=== PATIENT | female | born 1995 | race Caucasian/White ===

== ENCOUNTER 2016-08-29 22:12 | Emergency (ER) | payer OTHER ==
[~2016-08-29] VITALS: Ht 154.9 cm; Wt 51.3 kg
[2016-08-29 22:17] VITALS: TEMP 37.1; Ht 154.9 cm; Wt 51.3 kg
[2016-08-29] MEDS ORDERED: SODIUM CHLORIDE 0.9% 1000ML 1,000 ML IV STA ×2 (23:01)
[2016-08-29 23:11] LABS: BASO % 0.3 %; BASO ABS # 0.03 K/uL (0-0.2); COMPLETE YES; EOS % 0.1 %; HEMATOCRIT 39.5 % (37-47); IG% 0.1 %; LYMPH % 25.4 %; LYMPH ABS # 2.34 K/uL (1.2-3.4); MEAN CELL VOLUME 91.6 fL (80-100); MEAN CORPUSCULAR HEMOGLOBIN 32.3 pg (25-34); MEAN CORPUSCULAR HGB CONC 35.2 g/dl (32-36); MEAN PLATELET VOLUME 10.5 fL (7.4-10.4); NEUT % 68.1 %; PLATELET COUNT 299 K/uL (130-400); RED BLOOD COUNT 4.31 M/uL (4.2-5.4)
[2016-08-29 23:29] LABS: BUN/CREATININE RATIO 13.3 (10-20); CALCIUM 9.3 mg/dl (8.5-10.1); CREATININE 0.88 mg/dl (0.60-1.20); POTASSIUM 3.4 mmol/L (3.5-5.1)
[2016-08-29] MEDS ORDERED: KETOROLAC TROMETHAMINE 30 MG/ML VIAL IV STA (23:38)
[2016-08-29] MEDS ORDERED: ONDANSETRON INJ 2 MG/ML 2 ML VIAL IV STA (23:38)
--- NOTE | 2016-08-29 23:39 | EMERGENCY ROOM VISIT NOTE ---
History Report prepared by Archana: Carlos Cortes Under the Supervision of: Dr. Cathi Conti D.O. First contact with patient: 22:57 Chief Complaint: DEHYDRATION Stated Complaint: HEADACHE, NAUSEA, VOMITING, DEHYDRATION Nursing Triage Summary: pt reports abdominal pain with NV since this AM unable to keep liquids or food down History of Present Illness The patient is a 21 year old female who presents to the Emergency Room with complaints of persistent vomiting since she woke up at 1000 this morning. The patient has been unable to keep food or fluids down without vomiting. The patient also complains of a headache, nausea, and subjective low grade fevers today. She denies any diarrhea. The patient admits to having 2-3 alcoholic beverages last night. She also ate Talbert's, and notes that she usually vomits after eating it. The patient denies any significant medical history other than asthma. She is a [employer] student. LNMP was one month ago. Her periods are irregular. Source of History: patient Onset: 1000 this morning Position: other (GI) Quality: other (vomiting) Timing: other (persistent) Associated Symptoms: + fevers, + headache, + nausea, No diarrhea Review of Systems See HPI for pertinent positives & negatives. A total of 10 systems reviewed and were otherwise negative. Past Medical & Surgical Medical Problems: (1) Asthma Influenza B Family History No pertinent family history Social History Smoking Status: Never Smoker Alcohol Use: occasionally Marital Status: single Housing Status: lives with roommate Occupation Status: [employer] student Current/Historical Medications No Active Prescriptions or Reported Meds Allergies Coded Allergies: POLLEN (Unverified Allergy, Intermediate, SNEEZING, RUNNY NOSE, ITCHY EYES , 08/29/16) Penicillins (Verified Allergy, Intermediate, rash, 08/29/16) Physical Exam Vital Signs Date Time Temp Pulse Resp B/P Pulse Ox O2 Delivery O2 Flow Rate FiO2 08/30/16 01:20 75 18 98/52 97 08/30/16 00:27 73 18 105/64 98 Room Air 08/29/16 22:17 37.1 86 18 135/86 100 Room Air Physical Exam HEENT: Head - normocephalic and atraumatic Pupils are equal, round, and reactive to light. Extraocular eye muscles are intact, and sclera are anicteric. Nose - moist nasal mucosa without discharge. Mouth - moist buccal mucosa. Oropharynx is nonerythematous and there is no tonsillar exudate or edema noted. Neck: Supple; no JVD, nuchal rigidity, cervical lymphadenopathy. Heart: Regular rate and rhythm. There is a normal S1 and S2 with no murmurs, clicks, or gallops appreciated. Lungs: Clear to auscultation bilaterally with no wheezes, rales, or rhonchi. Abdomen: Soft, diffuse mild tenderness with palpation of the abdomen, nondistended, with good bowel sounds. There are no palpable pulsatile masses or hepatosplenomegaly. There is no guarding, rigidity, or rebound noted. Extremities: No evidence of cyanosis, clubbing, or edema. There are easily palpable peripheral pulses. Skin: warm and dry with good turgor and no rashes. Medical Decision & Procedures Laboratory Results 08/29/16 22:57 Red Blood Count 4.31, Mean Corpuscular Volume 91.6, Mean Corpuscular Hemoglobin 32.3, Mean Corpuscular Hemoglobin Concent 35.2, Mean Platelet Volume 10.5, Neutrophils (%) (Auto) 68.1, Lymphocytes (%) (Auto) 25.4, Monocytes (%) (Auto) 6.0, Eosinophils (%) (Auto) 0.1, Basophils (%) (Auto) 0.3, Neutrophils # (Auto) 6.26, Lymphocytes # (Auto) 2.34, Monocytes # (Auto) 0.55, Eosinophils # (Auto) 0.01, Basophils # (Auto) 0.03 08/29/16 22:57 Test 08/29/16 22:57 White Blood Count 9.20 K/uL (4.8-10.8) Red Blood Count 4.31 M/uL (4.2-5.4) Hemoglobin 13.9 g/dL (12.0-16.0) Hematocrit 39.5 % (37-47) Mean Corpuscular Volume 91.6 fL (80-100) Mean Corpuscular Hemoglobin 32.3 pg (25-34) Mean Corpuscular Hemoglobin Concent 35.2 g/dl (32-36) Platelet Count 299 K/uL (130-400) Mean Platelet Volume 10.5 fL (7.4-10.4) Neutrophils (%) (Auto) 68.1 % Lymphocytes (%) (Auto) 25.4 % Monocytes (%) (Auto) 6.0 % Eosinophils (%) (Auto) 0.1 % Basophils (%) (Auto) 0.3 % Neutrophils # (Auto) 6.26 K/uL (1.4-6.5) Lymphocytes # (Auto) 2.34 K/uL (1.2-3.4) Monocytes # (Auto) 0.55 K/uL (0.11-0.59) Eosinophils # (Auto) 0.01 K/uL (0-0.5) Basophils # (Auto) 0.03 K/uL (0-0.2) RDW Standard Deviation 40.5 fL (36.4-46.3) RDW Coefficient of Variation 11.9 % (11.5-14.5) Immature Granulocyte % (Auto) 0.1 % Immature Granulocyte # (Auto) 0.01 K/uL (0.00-0.02) Anion Gap 8.0 mmol/L (3-11) Est Creatinine Clear Calc Drug Dose 75.6 ml/min Estimated GFR () 108.1 Estimated GFR (Non- 93.3 BUN/Creatinine Ratio 13.3 (10-20) Calcium Level 9.3 mg/dl (8.5-10.1) Total Bilirubin 0.7 mg/dl (0.2-1) Direct Bilirubin 0.2 mg/dl (0-0.2) Aspartate Amino Transf (AST/SGOT) 15 U/L (15-37) Alanine Aminotransferase (ALT/SGPT) 22 U/L (12-78) Alkaline Phosphatase 76 U/L (45-117) Total Protein 7.7 gm/dl (6.4-8.2) Albumin 4.4 gm/dl (3.4-5.0) Laboratory results per my review. Medications Administered Medications (Trade) Dose Ordered Sig/Cheikh Route Start Time Stop Time Status Last Admin Dose Admin Sodium Chloride (Nss 1000ml) 1,000 ml @ 999 mls/hr Q1H1M STAT IV 08/29/16 23:01 08/30/16 00:01 DC 08/29/16 23:01 999 MLS/HR Ketorolac Tromethamine (Toradol Inj) 30 mg NOW STAT IV 08/29/16 23:38 08/29/16 23:39 DC 08/29/16 23:38 30 MG Ondansetron HCl (Zofran Inj) 4 mg NOW STAT IV 08/29/16 23:38 08/29/16 23:39 DC 08/29/16 23:38 4 MG Procedure Medications administered include Toradol IV, Zofran IV, NSS IV. ED Course 2335: Past medical records reviewed. The patient was evaluated in room C7. A complete history and physical exam was performed. An IV lock was initiated and labs are drawn as above. 2301: NSS 1000 ml @ 250 mls/hr, NSS 1000 ml @ 999 mls/hr. 2338: Zofran 4 mg IV, Toradol 30 mg IV. 0035: The patient has not had anymore vomiting. She did have chicken broth [employer] and did not vomit then. She is drinking Gatorade now. 0106: The patient is drinking without any problems or new vomiting. I discussed the treatment plan with her. She verbalized understanding and agreement of the treatment plan. The patient is ready for discharge. Medical Decision The patient is a 21 year old female who presents to the ED with vomiting. Differential diagnosis includes acute gastritis, dehydration, electrolyte imbalance. Laboratory interpretation: No leukocytosis, stable H&H, potassium 3.4, normal renal function, normal glucose and LFTs. The patient received IV crystalloid therapy here in the emergency department along with some Zofran and Toradol. She is feeling much better at this time. The patient did admit that she was drinking last night and had eaten some Tal[employer]. This could've led to her symptoms of vomiting this morning. The patient has been able to keep liquids down at this time. Her headache is gone. I've asked her to rest and take plenty of clear liquids and a bland diet over the next couple of days. Impression Primary Impression: Vomiting Scribe Attestation The scribe's documentation has been prepared under my direction and personally reviewed by me in its entirety. I confirm that the note above accurately reflects all work, treatment, procedures, and medical decision making performed by me. Departure Information Dispostion Home / Self-Care Prescriptions No Active Prescriptions or Reported Meds Referrals No Doctor, Assigned (PCP) Forms HOME CARE DOCUMENTATION FORM, IMPORTANT VISIT INFORMATION, WORK / SCHOOL INSTRUCTIONS Patient Instructions My [facility] Additional Instructions Rest Take plenty of clear liquids and a bland diet. follow up with [facility] if vomiting continues
[2016-08-30 01:20] VITALS: BP 98/52; PULSE 75; O2SAT 97
== END 2016-08-30 01:23 | disposition home or self-care (01) ==
LOC: C.EDB 22:13 → C.EDC 08-30 01:23
DX: R11.10 Vomiting, unspecified (principal); J45.909 Unspecified asthma, uncomplicated